=== PATIENT | female | born 1990 | race African-American/Black ===

== ENCOUNTER 2024-05-31 18:58 | Inpatient (IN) | payer OTHER ==
[2024-05-31 20:10] VITALS: BMI 17.3
[2024-05-31] MEDS ORDERED: BENZONATATE 200 MG CAPSULE PO PRN (23:52)
[2024-05-31] MEDS ORDERED: NICOTINE POLACRILEX 2 MG GUM BUC PRN (23:52)
[2024-05-31] MEDS ORDERED: guaiFENesin 600 MG TABLET.ER (FP) PO PRN (23:52)
[2024-05-31] MEDS ORDERED: ONDANSETRON *ODT* 4 MG TABLET SL PRN (23:52)
[2024-05-31] MEDS ORDERED: BENZOCAINE/MENTHOL (CHLORASEPTIC ) LOZENGE MM PRN (23:52)
[2024-05-31] MEDS ORDERED: IBUPROFEN 400 MG TABLET (FP) PO PRN (23:52)
[2024-05-31] MEDS ORDERED: BISMUTH SUBSALICYLATE 524 MG/30 ML PO PRN (23:52)
[2024-05-31] MEDS ORDERED: NALOXONE HCL 0.4 MG/ML VIAL IM PRN (23:52)
[2024-05-31] MEDS ORDERED: DICYCLOMINE HCL 10 MG CAPSULE PO PRN (23:52)
[2024-05-31] MEDS ORDERED: NALOXONE (NARCAN) HCL 4 MG/0.1 ML SPRAY NS PRN (23:52)
[2024-05-31] MEDS ORDERED: MAG HYDROX/AL HYDROX/SIMETH 30 ML UNIT-DOSE CUP PO PRN (23:52)
[2024-05-31] MEDS ORDERED: LOPERAMIDE HCL 2 MG CAPSULE PO PRN (23:52)
[2024-06-01] MEDS ORDERED: MELATONIN 5 MG TABLETS ONE (00:47)
[2024-06-01] MEDS ORDERED: hydrOXYzine PAMOATE 25 MG CAPSULE (FP) PO ONE (00:47)
[2024-06-01] MEDS: hydrOXYzine PAMOATE 25 MG CAPSULE (FP) PO PRN (00:50)
[2024-06-01] MEDS: MELATONIN 5 MG TABLETS PO SCH (00:51)
[2024-06-01] MEDS: PRENATAL VITAMINS W/ FOLIC ACID TABLET (FP) PO SCH (09:54)
[2024-06-01] MEDS: NICOTINE 14 MG/24 HOURS TOPICAL PATCH TD SCH (09:54)
[2024-06-01 13:24] LABS: HEMATOCRIT 33.8 % (32.4-45.2); HEMOGLOBIN 11.4 GM/dL (10.7-15.3); MCH 31.1 pg (25.7-33.7); MCHC 33.6 g/dl (32.0-36.0); MEAN CELL VOLUME 92.6 fl (80-96); MEAN PLT VOLUME 8.2 fl (7.5-11.1); PLATELET COUNT 313 10^3/uL (134-434); RBC 3.65 M/mm3 (3.60-5.2); RDW 16.8 % (11.6-15.6); WHITE BLOOD COUNT 4.9 K/mm3 (4.0-10.0)
[2024-06-01 13:35] LABS: CHLORIDE 114 mmol/L (98-107); POTASSIUM 4.1 mmol/L (3.5-5.1); SODIUM 142 mmol/L (136-145)
[2024-06-01 13:41] LABS: CALCIUM 8.7 mg/dL (8.5-10.1); GLUCOSE,RANDOM 133 mg/dL (74-106)
[2024-06-01 13:42] LABS: ALBUMIN 3.1 g/dl (3.4-5.0); ANION GAP 5 mmol/L (4-13); BLOOD UREA NITROGEN 9.2 mg/dL (7-18); CO2 24 mmol/L (21-32)
[2024-06-01 13:44] LABS: CREATININE 0.7 mg/dL (0.55-1.3); SGPT/ALT 32 U/L (13-61)
[2024-06-01 13:45] LABS: BILIRUBIN,TOTAL 0.4 mg/dL (0.2-1)
[2024-06-01 13:46] LABS: TOT PROT 6.3 g/dl (6.4-8.2)
[2024-06-01 13:47] LABS: ALK PHOS 94 U/L (45-117)
[2024-06-01 13:57] LABS: SGOT/AST 24 U/L (15-37)
[2024-06-01] MEDS: MAGNESIUM HYDROX 2400MG/30ML ORAL SUSPENSION 30 ML CUP PO PRN (18:22)
[2024-06-01] MEDS: METHOCARBAMOL 500 MG TABLET PO PRN (22:11)
[2024-06-01] MEDS: GABAPENTIN 100 MG CAPSULE PO SCH (22:11)
[2024-06-01] MEDS: THIAMINE 100 MG TABLET PO SCH (22:12)
[2024-06-02] MEDS ORDERED: chlordiazePOXIDE HCL 25 MG CAPSULE PO PRN (10:06)
[2024-06-02] MEDS: chlordiazePOXIDE HCL 25 MG CAPSULE PO SCH (10:57)
[2024-06-02] MEDS: ACETAMINOPHEN 325 MG TABLET (FP) PO PRN (22:30)
[2024-06-03] MEDS: POLYETHYLENE GLYCOL (HEALTHYLAX) 3350 17 GM PACKET PO PRN (12:59)
[2024-06-03] MEDS: IBUPROFEN 600 MG TABLET (FP) PO PRN (17:18)
[2024-06-03 20:56] VITALS: BP 116/77; PULSE 103; RESP 16; TEMP 98.7
[2024-06-04] MEDS ORDERED: chlordiazePOXIDE HCL 25 MG CAPSULE PO SCH (05:00)
[2024-06-05] MEDS ORDERED: chlordiazePOXIDE HCL 10 MG CAPSULE PO PRN
[2024-06-05] MEDS ORDERED: chlordiazePOXIDE HCL 10 MG CAPSULE PO SCH (05:00)
[2024-06-06] MEDS ORDERED: chlordiazePOXIDE HCL 10 MG CAPSULE PO SCH (05:00)
[2024-06-07] MEDS ORDERED: chlordiazePOXIDE HCL 10 MG CAPSULE PO ONE (05:00)
== END 2024-06-03 21:19 | disposition left against medical advice (07) | DRG 770 ==
LOC: YASAS 18:58 → Y3N 06-01 01:20
PROVIDERS: ADMIT Allergy & Immunology; ATTEND Surgery
PROC: HZ2ZZZZ Detoxification Services for Substance Abuse Treatment (ICD-10-PCS; principal; 2024-06-01)
DX: F10.230 Alcohol dependence with withdrawal, uncomplicated (principal); F14.20 Cocaine dependence, uncomplicated; F17.210 Nicotine dependence, cigarettes, uncomplicated; F19.24 Other psychoactive substance dependence with psychoactive substance-induced mood disorder; F31.9 Bipolar disorder, unspecified; G47.00 Insomnia, unspecified; Z87.19 Personal history of other diseases of the digestive system; Z56.0 Unemployment, unspecified; Z59.00 Homelessness unspecified
CPT/HCPCS: 36415; 80053; 80305; 80307; 81025; 85027; 86780; 93005; 93010